=== PATIENT | male | born 1970 | race Caucasian/White ===

== ENCOUNTER 2017-07-14 10:00 | Day surgery (SDC) | payer BC ==
[2017-07-14] MEDS ORDERED: Lactated Ringers 1,000 ML IV ONE (10:01)
[2017-07-14] MEDS ORDERED: DIPRIVAN 200 MG/20 ML IV ONE (10:01)
[2017-07-14] MEDS ORDERED: Marcaine 0.5% SDV 10 ML IJ ONE (10:01)
[2017-07-14] MEDS ORDERED: Xylocaine 1% Vial 30 ML PF IJ ONE (10:01)
--- NOTE | 2017-07-14 14:23 | XRAY ---
1 minute and 13 seconds fluoroscopy time in surgery for left L4-S1 MBB.
--- NOTE | 2017-07-14 14:23 | XRAY ---
Indication: Left L4-S1 MBB. Intraoperative fluoroscopy was provided for 1 minute 13 seconds. 2 digital spot images submitted for interpretation demonstrates posterior spinal needle tips projecting over the left L4-L5 and L5-S1 facets. Correlate with intraoperative findings/report.
--- NOTE | 2017-07-15 10:27 | OP ---
DATE OF PROCEDURE: 07/14/2017 1100 SURGEON: Tosha Klein D.O. PREOPERATIVE DIAGNOSIS: Degenerative lumbar spine disease, spondylosis, low back pain. POSTOPERATIVE DIAGNOSIS: Degenerative lumbar spine disease, spondylosis, low back pain. PROCEDURE PERFORMED: Left L5-L4 medial branch block under fluoroscopic guidance. DESCRIPTION OF THE PROCEDURE: The patient was taken to the operating room and placed in the prone position on the table. Skin at the injection site was prepped and draped in sterile fashion. Under fluoroscopy, bony anatomy of the targeted injection site was visualized. Induction agent was given as per anesthesia while vital signs were monitored. Local anesthetic agent used 11 cc of 1% lidocaine preservative-free and the medication used for the nerve block 0.5 cc of 1 cc preservative-free Marcaine were injected into each of the targeted medial branch nerve to anesthetize the skin and the subcutaneous tissue through the injection site. Under fluoroscopic guidance, a #20 gauge standard spinal needle was advanced into the target medial branch through the oblique approach. After the needle was being removed, the skin was cleansed with alcohol and then a bandage was applied. No complications or adverse consequences were observed. The patient was returned to the holding area until stabilized before discharge to home. Preoperative pain level is 10 out of 10 and postoperative pain level is 4 to 5 out of 10. The patient will be followed up within ten days after the injection for re-evaluation.
== END 2017-07-14 11:45 | disposition home or self-care (01) ==
LOC: SDC-PAIN 10:00
PROVIDERS: ATTEND Internal Medicine
DX: M54.5 Low back pain (principal); M46.96 Unspecified inflammatory spondylopathy, lumbar region; M51.36 Other intervertebral disc degeneration, lumbar region; Z79.891 Long term (current) use of opiate analgesic
CPT/HCPCS: 64493; 64494; 72020; 77003; J2001; J2704